=== PATIENT | female | born 1980 | race Caucasian/White ===

== ENCOUNTER 2016-10-04 09:52 | Emergency (ER) | payer OTHER ==
[2016-10-04] MEDS ORDERED: Aspirin Low Dose CHEW TAB* 81 MG PO ONE (10:15)
[2016-10-04 10:52] LABS: Hematocrit 40 % (35-47); Hemoglobin 13.3 g/dl (12.0-16.0); Mean Corpuscular HGB Conc 33 g/dl (31-36); Mean Corpuscular Hemoglobin 30 pg (27-31); Mean Corpuscular Volume 90 fL (80-97); Mean Platelet Volume 9 um3 (7.4-10.4); Red Blood Count 4.41 10^6/ul (4.0-5.4); Red Cell Distribution Width 13 % (10.5-15); White Blood Count 6.1 10^3/ul (3.5-10.8)
--- NOTE | 2016-10-04 11:06 | RAD ---
Indication: Chest pain. Single frontal view of the chest performed at 1043 hours was reviewed. No prior study is available for comparison. No mediastinal shift is noted. Heart is of normal size and configuration. Lung adair appear clear. IMPRESSION: NO ACTIVE CARDIOPULMONARY DISEASE IS NOTED.
[2016-10-04 11:07] LABS: Albumin 4.6 g/dL (3.2-5.2); Calcium 9.4 mg/dL (8.6-10.3); EGFR African American 114.5 (>60); Globulin 2.7 g/dL (2-4); Potassium 3.8 mmol/L (3.5-5.0); Total Bilirubin 0.8 mg/dL (0.2-1.0); Total Protein 7.3 g/dL (6.4-8.9)
[2016-10-04 11:10] LABS: Troponin I 0.01 ng/mL (<0.04)
--- NOTE | 2016-10-04 11:24 | RAD ---
Indication: Neck pain radiating to the right upper extremity. CT of the cervical spine was obtained in the axial plane. Sagittal and coronal reconstructed images were obtained. Inferior mastoid air cells are unremarkable. The C1 ring is intact. No fracture is identified. The vertebral bodies appear normal in height and alignment. No compression fracture is noted. There is no disc protrusion there is minimal central disc protrusion at C3-C4 flattening the thecal sac. No definite central or foraminal stenosis is noted. IMPRESSION: No fracture of the cervical spine is noted. There is suggestion of a minimal central disc protrusion at C3-C4.
[2016-10-04 12:08] VITALS: BP 102/66
[2016-10-04] MEDS ORDERED: Ketorolac INJ* 30 MG/ML 1 ML VIAL IV PUSH ONE (12:20)
[2016-10-04] MEDS ORDERED: Dexamethasone IV* 4 MG in NS 0.9% 50 ML* 50 ML IVPB SCH (13:00)
--- NOTE | 2016-10-20 20:48 | ED ---
Jared Gilmore Adam, scribed for Robert Urbina MD on 10/04/16 at 1018 . HPI Chest Pain - HPI Summary HPI Summary: Pt is a 35 year old female presenting with left arm pain and CP. She states that her left arm has been hurting intermittently for approximately 1 month. The pain is located along her inner forearm. She states that sometimes it sets on when she is at rest. At worst the pain is 8/10 in severity. It is currently 5 /10. She describes it as a sharp pain, often accompanied by numbness. She also c /o intermittent mid-sternal CP for 1 week, as well as back pain. Pt denies any PMHx and is not on any medications. She denies tobacco/alcohol use. FMHx of heart disease. - History of Current Complaint Chief Complaint: EDChestPainROMI Time Seen by Provider: 10/04/16 10:14 Hx Obtained From: Patient Onset/Duration: Started Weeks Ago - CP for the past week, arm pain for the past month, Atraumatic, Still Present Timing: Intermittent Initial Severity: Moderate Current Severity: Moderate Pain Intensity: 5 Pain Scale Used: 0-10 Numeric Chest Pain Location: Mid Sternal Chest Pain Radiates: Yes Chest Pain Radiates To:: Arm - Left Character: Sharp/Stabbing - In the left arm Aggravating Factor(s): Nothing Alleviating Factor(s): Nothing Associated Signs and Symptoms: Positive: Numbness - Left arm - Allergy/Home Medications Allergies/Adverse Reactions: Allergies Allergy/AdvReac Type Severity Reaction Status Date / Time No Known Allergies Allergy Verified 10/04/16 10:06 PMH/Surg Hx/FS Hx/Imm Hx Previously Healthy: Yes Infectious Disease History: Yes Infectious Disease History: Denies: Traveled Outside the [place] in Last 30 Days - Family History Known Family History: Positive: Cardiac Disease - Social History Occupation: Employed Full-time Lives: With Family - Domestic partner male Alcohol Use: None Hx Tobacco Use: No Smoking Status (MU): Never Smoked Tobacco Review of Systems Negative: Fever Positive: Chest Pain Positive: Myalgia - Left arm Positive: Numbness - Left arm All Other Systems Reviewed And Are Negative: Yes Physical Exam - Summary Physical Exam Summary: VITAL SIGNS: Reviewed. GENERAL: Patient is a well developed and nourished female who is lying comfortable in the stretcher. Patient is not in any acute respiratory distress. HEAD AND FACE: No signs of trauma. No ecchymosis, hematomas or skull depressions. No sinus tenderness. EYES: PERRLA, EOMI x 2, No injected conjunctiva, no nystagmus. EARS: Hearing grossly intact. Ear canals and tympanic membranes are within normal limits. MOUTH: Oropharynx within normal limits. NECK: Supple, trachea is midline, no adenopathy, no JVD, no carotid bruit, positive c-spine tenderness, neck with full ROM. CHEST: Symmetric, no tenderness at palpation LUNGS: Clear to auscultation bilaterally. No wheezing or crackles. CVS: Regular rate and rhythm, S1 and S2 present, no murmurs or gallops appreciated. ABDOMEN: Soft, non-tender. No signs of distention. No rebound no guarding, and no masses palpated. Bowel sounds are normal. EXTREMITIES: FROM in all major joints, no edema, no cyanosis or clubbing. NEURO: Alert and oriented x 3. No acute neurological deficits. Speech is normal and follows commands. SKIN: Dry and warm Triage Information Reviewed: Yes Vital Signs On Initial Exam: Initial Vitals Temp Pulse Resp BP Pulse Ox 99.6 F 96 16 97/61 100 10/04/16 10:03 10/04/16 10:03 10/04/16 10:03 10/04/16 10:03 10/04/16 10:03 Vital Signs Reviewed: Yes Diagnostics - Vital Signs Vital Signs Temp Pulse Resp BP Pulse Ox 10/04/16 10:03 99.6 F 96 16 97/61 100 - Laboratory Lab Results: Lab Results 10/04/16 10/04/16 10/04/16 Range/Units 10:20 10:20 10:20 WBC 6.1 (3.5-10.8) 10^3/ul RBC 4.41 (4.0-5.4) 10^6/ul Hgb 13.3 (12.0-16.0) g/dl Hct 40 (35-47) % MCV 90 (80-97) fL MCH 30 (27-31) pg MCHC 33 (31-36) g/dl RDW 13 (10.5-15) % Plt Count 189 (150-450) 10^3/ul MPV 9 (7.4-10.4) um3 Neut % (Auto) 60.1 (38-83) % Lymph % (Auto) 32.3 (25-47) % [place] % (Auto) 5.7 (1-9) % Eos % (Auto) 1.3 (0-6) % Baso % (Auto) 0.6 (0-2) % Absolute Neuts (auto) 3.6 (1.5-7.7) 10^3/ul Absolute Lymphs (auto) 2.0 (1.0-4.8) 10^3/ul Absolute Monos (auto) 0.3 (0-0.8) 10^3/ul Absolute Eos (auto) 0.1 (0-0.6) 10^3/ul Absolute Basos (auto) 0 (0-0.2) 10^3/ul Absolute Nucleated RBC 0 10^3/ul Nucleated RBC % 0 Sodium 137 (133-145) mmol/L Potassium 3.8 (3.5-5.0) mmol/L Chloride 103 (101-111) mmol/L Carbon Dioxide 29 (22-32) mmol/L Anion Gap 5 (2-11) mmol/L BUN 12 (6-24) mg/dL Creatinine 0.75 (0.51-0.95) mg/dL Est GFR ( Amer) 114.5 (>60) Est GFR (Non-Af Amer) 89.0 (>60) BUN/Creatinine Ratio 16.0 (8-20) Glucose 63 L (70-100) mg/dL Lactic Acid 1.1 (0.5-2.0) mmol/L Calcium 9.4 (8.6-10.3) mg/dL Total Bilirubin 0.80 (0.2-1.0) mg/dL AST 13 (13-39) U/L ALT 14 (7-52) U/L Alkaline Phosphatase 41 (34-104) U/L Troponin I 0.01 (<0.04) ng/mL Total Protein 7.3 (6.4-8.9) g/dL Albumin 4.6 (3.2-5.2) g/dL Globulin 2.7 (2-4) g/dL Albumin/Globulin Ratio 1.7 (1-3) Beta HCG, Quant Pending Result Diagrams: 10/04/16 10:20 10/04/16 10:20 Lab Statement: Any lab studies that have been ordered have been reviewed, and results considered in the medical decision making process. - Radiology CXR Radiology Interpretation Completed By: Radiologist - IMPRESSION: NO ACTIVE CARDIOPULMONARY DISEASE IS NOTED. - CT CERVICAL SPINE CT Interpretation Completed By: Radiologist - IMPRESSION: No fracture of the cervical spine is noted. There is suggestion of a minimal central disc protrusion at C3-C4. - EKG 10:15 Cardiac Rate: NL - 86 BPM EKG Rhythm: Sinus Rhythm EKG Interpretation: No ST elevations - Additional Comments Diagnostic Additional Comments: Troponin I - 0.01 Chest Pain Course/Dx - Course Course Of Treatment: Pt is a 35 year old female presenting with left arm pain and CP. She states that her left arm has been hurting intermittently for approximately 1 month. The pain is located along her inner forearm. She states that sometimes it sets on when she is at rest. At worst the pain is 8/10 in severity. It is currently 5/10. She describes it as a sharp pain, often accompanied by numbness. She also c/o intermittent mid-sternal CP for 1 week, as well as back pain. Pt denies any PMHx and is not on any medications. She denies tobacco/alcohol use. FMHx of heart disease. BW is found to be WNL except for glucose of 63. CXR shows no acute pathology. CT C spine shows minimal central disc protrusion at C3-C4. I believe the pain is secondary to the disc protrusion. Troponin is negative and EKG is WNL. Therefore I don't suspect acute coronary syndrome. Pt was given Decadron and Toradol. She is feeling better and will be discharged home. Pt is hemodynamically stable and A& Ox3. - Chest Pain Differential Diagnosis/HQI/PQRI: Chest Wall, Lower Respiratory Infection, Other : - Neck sprain, neck pain - Diagnoses Provider Diagnoses: Neck pain, Upper extremity paresthesia, Atypical chest pain Discharge - Discharge Plan Condition: Stable Disposition: HOME Prescriptions: Ibuprofen TAB* [Motrin TAB* 600 MG] 600 mg PO Q8H PRN #20 tab PRN Reason: Pain Methylprednisolone [Medrol Dosepak 4 MG*] 4 mg PO .SEE ANTONIO INSTRUCTION #1 antonio Patient Education Materials: Neck Pain (ED), Paresthesia (ED), Chest Pain (ED) Referrals: Rivera Vidal DO [Primary Care Provider] - Additional Instructions: Follow up with Dr. Vidal. The documentation as recorded by the Jared iglesias Adam accurately reflects the service I personally performed and the decisions made by , Robert Urbina MD.
== END 2016-10-04 12:45 | disposition home or self-care (01) ==
LOC: ED 09:52
DX: R07.89 Other chest pain (principal); M79.602 Pain in left arm; M54.2 Cervicalgia; R20.9 Unspecified disturbances of skin sensation
CPT/HCPCS: 36415; 71010; 72125; 80053; 83605; 84484; 84702; 85025; 93005; 96374; 99283

== ENCOUNTER 2017-08-31 18:42 | Emergency (ER) | payer OTHER ==
--- NOTE | 2017-08-31 20:56 | ED ---
Upper Extremity Pain - HPI Summary HPI Summary: 39-year-old female presents with right wrist pain today. She states that she fell on her right wrist 3 times with the last time being during rollerblading. She denies any numbness and tingling. She hasn't taken anything for pain. Pain is a 5 out of 10. She states pain is worse with movement. She denies any previous injury to the area. She is right-handed. She denies any other injury. she states this is a chance that she is . She works as a home health aide. - History of Current Complaint Chief Complaint: EDExtremityUpper Stated Complaint: POSSIBLE BROKEN RT ARM Time Seen by Provider: 08/31/17 19:26 - Allergies/Home Medications Allergies/Adverse Reactions: Allergies Allergy/AdvReac Type Severity Reaction Status Date / Time No Known Allergies Allergy Verified 10/04/16 10:06 PMH/Surg Hx/FS Hx/Imm Hx Endocrine/Hematology History: Denies: Hx Anticoagulant Therapy Cardiovascular History: Denies: Hx Hypertension Infectious Disease History: No Infectious Disease History: Denies: Traveled Outside the [place] in Last 30 Days - Family History Known Family History: Positive: Cardiac Disease - Social History Alcohol Use: None Substance Use Type: Reports: None Hx Tobacco Use: No Smoking Status (MU): Never Smoked Tobacco Review of Systems Negative: Fever Negative: Chest Pain Negative: Shortness Of Breath Positive: Myalgia - right wrist pain All Other Systems Reviewed And Are Negative: Yes Physical Exam Triage Information Reviewed: Yes Vital Signs On Initial Exam: Initial Vitals Temp Pulse Resp BP Pulse Ox 98.1 F 93 15 102/65 100 08/31/17 18:47 08/31/17 18:47 08/31/17 18:47 08/31/17 18:47 08/31/17 18:47 Vital Signs Reviewed: Yes Appearance: Positive: Well-Appearing Skin: Positive: Warm, Dry Head/Face: Positive: Normal Head/Face Inspection Eyes: Positive: Normal, Conjunctiva Clear Respiratory/Lung Sounds: Positive: Clear to Auscultation, Breath Sounds Present Musculoskeletal: Positive: Limited @ - right wrist due to pain, Other - tenderness over radius and ulnar near right wrist. good pulses, sensation grossly intact. Negative: Edema Right Neurological: Positive: Normal Psychiatric: Positive: Normal Procedures - Splinting Location: right wrist Hand-Made Type: orthoglass Splint: sugar-tong Pre-Proc Neuro Vasc Exam: normal Post-Proc Neuro Vasc Exam: normal Diagnostics - Vital Signs Vital Signs Temp Pulse Resp BP Pulse Ox 08/31/17 18:47 98.1 F 93 15 102/65 100 - Laboratory Lab Statement: Any lab studies that have been ordered have been reviewed, and results considered in the medical decision making process. - Radiology wrist Xray Interpretation: Positive (See Comments) - IMPRESSION: QUESTIONABLE NONDISPLACED FRACTURE THROUGH THE STYLOID PROCESS OF THE ULNA. RECOMMEND CORRELATION WITH SITE OF PAIN Radiology Interpretation Completed By: Radiologist Course/Dx - Course Course Of Treatment: 39-year-old female presents with right wrist pain today. She states that she fell on her right wrist 3 times with the last time being during rollerblading. She denies any numbness and tingling. She hasn't taken anything for pain. Pain is a 5 out of 10. She states pain is worse with movement. She denies any previous injury to the area. She is right-handed. She denies any other injury. she states this is a chance that she is . on exam neurovascularly intact. Has tenderness over the radial and ulnar aspect of the right wrist. No snuffbox tenderness. X-ray shows possible ulnar fracture. On exam tender over ulnar styloid process. Place patient in splint and follow-up with ortho. patient understand and agrees with plan. - Diagnoses Differential Diagnosis/HQI/PQRI: Positive: Fracture (Closed), Strain, Sprain Provider Diagnoses: Right wrist injury Discharge - Discharge Plan Condition: Good Disposition: HOME Prescriptions: oxyCODONE/Acetamin 5/325 MG* [Percocet 5/325 TAB*] 1 tab PO Q6H PRN #10 tab MDD 4 PRN Reason: Pain Patient Education Materials: Wrist Fracture in Adults (ED) Referrals: Rivera Vidal DO [Primary Care Provider] - Akil Randle MD [Medical Doctor] - Additional Instructions: Take Tylenol or ibuprofen every 6 hours as needed for pain, take narcotic for break through pain Apply ice, rest, elevate Follow up with ortho Return to ED if develop any new or worsening symptoms
--- NOTE | 2017-08-31 21:16 | RAD ---
HISTORY: Right wrist pain, trauma COMPARISONS: None VIEWS: 3, Frontal, lateral, and oblique views of the right wrist FINDINGS: BONE DENSITY: Normal. BONES: On a single projection, there is a faint linear lucency through the styloid process of the ulna. JOINTS: There is no arthropathy. ALIGNMENT: There is no dislocation. SOFT TISSUES: Unremarkable. OTHER FINDINGS: None. IMPRESSION: QUESTIONABLE NONDISPLACED FRACTURE THROUGH THE STYLOID PROCESS OF THE ULNA. RECOMMEND CORRELATION WITH SITE OF PAIN
[2017-08-31] MEDS ORDERED: oxyCODONE/Acetamin 5/325 MG* TAB PO ONE (21:34)
[2017-08-31] MEDS ORDERED: Ketorolac INJ* 60 MG/2 ML VIAL IM ONE (21:34)
[2017-08-31 21:55] VITALS: BP 104/64
== END 2017-08-31 21:54 | disposition home or self-care (01) ==
LOC: ED 18:42
DX: S69.91XA Unspecified injury of right wrist, hand and finger(s), initial encounter (principal); V00.111A Fall from in-line roller-skates, initial encounter; Y93.51 Activity, roller skating (inline) and skateboarding; Y92.9 Unspecified place or not applicable; Z32.02 Encounter for pregnancy test, result negative
CPT/HCPCS: 36415; 84702; 96372; 99282; A9270-GY; J1885

== ENCOUNTER 2018-07-08 08:14 | Inpatient (IN) | payer OTHER ==
--- NOTE | 2018-07-08 08:52 | HP ---
General Information - Reason for Visit Pt reports ctx starting at 0200, increasing in frequency and intensity. Denies leaking of fluid. Reports active FM. - General Information Maternal Age: 37 Grav: 6 Para: 5 SAB: 0 IEA: 0 Estimated Due Date: 07/14/18 Determined By: Early Ultrasound Maternal Blood Type and Rh: A Positive - Results this Serology/RPR Result: Non-Reactive Rubella Result: Immune HBsAg Result: Negative HIV Result: Negative GBS Culture Result: Negative Past Medical History Delivery History: Hx Uncomplicated Vaginal Delivery - Grand multipara Pertinent Past Medical History: See Records - asthma, eczema Pertinent Past Surgical History: None Pertinent Family History: See Records - asthma - Antepartal Records Antepartal Records: Reviewed, Complicated by: - grand multiparity, AMA Review of Systems Constitutional: Uncomfortable CV Complaint: No Respiratory: Shortness of Breath: No Gastrointestinal: No Nausea/Vomiting, Normal Bowel Movement Genitourinary: No Dysuria, No Bleeding, No Leaking Fluid Musculoskeletal: No Epigastric Pain, Contractions Neurological: No Headache, No Visual Changes Movement: Normal Exam Allergies/Adverse Reactions: Allergies No Known Allergies Allergy (Verified 10/04/16 10:06) T-98.5, P-95, R-18, BP-112/65, O2-98 - Measurements Height: 5 ft 4 in Weight: 61.235 kg Body Mass Index (BMI): 23.1 Pre- Weight: 51.256 kg - Exam Breast: Breast Exam Deferred CVA: No CVA Tenderness Extremities: No Edema Heart: Normal Rhythm/Heart Sounds HEENT: No Significant Findings Lungs: Clear Bilaterally - occasional cough, no wheezing Rectal: Rectal Exam Deferred Reflexes: DTR 2+ Thyroid: No Thyromegaly - Abdominal Exam Abdomen Exam: Non-Tender, Fundal Height Consistent with Dates - Ultrasound/Biophysical Profile Ultrasound Status: Not Done Targeted Exam Findings See L&D Outpatient Visit Provider Note for Findings: N/A Estimated Weight: 7# Cervical Exam: 5cm Effacement: 80% Station: -1 Presenting Part: Vertex Membrane Status: Intact Bleeding/Discharge: Bloody Show EFM Findings - External Monitor Findings Baseline Heart Rate: 135 External Monitor Findings: Accelerations Present, No Pattern of Variable or Late Decelerations, Variability Moderate, Baseline Stable Contractions: Regular, Strong, 45-90 Seconds Contraction Frequency: 4-5 minutes Assessment/Plan - Assessment 37 year old at 39 1/7 weeks gestation in active labor, no evidence of acidemia, membranes intact, GBS negative. - Obstetrical Risk Factors Risk Factors Comment: Grand multiparity - Plan Plan: Admit - Anticipate Vaginal Delivery Plan Comment: Discussed plan of care with pt. She is interested in an epidural but does not feel ready for it yet. Will initiate IV access, CBC, Type and Screen and give IVF bolus. Will notify anesthesiologist when pt feels ready for epidural. Room ready for delivery in case of precipitous . Plan IV Pitocin after of baby. - Date/Time of Admission Date of Admission: 07/08/18 Time of Admission: 08:45
[2018-07-08 09:08] LABS: ABS Basophils 0 10^3/ul (0-0.2); ABS Eosinophils 0.1 10^3/ul (0-0.6); ABS Lymphocytes 1.7 10^3/ul (1.0-4.8); ABS Monocytes 0.7 10^3/ul (0-0.8); ABS Neutrophils 9.8 10^3/ul (1.5-7.7); ABS Nucleated RBC 0 10^3/ul; Eosinophil % 0.7 %; Hematocrit 30 % (35-47); Lymphocyte % 13.7 %; Mean Corpuscular HGB Conc 34 g/dl (31-36); Mean Corpuscular Hemoglobin 29 pg (27-31); Mean Corpuscular Volume 85 fL (80-97); Mean Platelet Volume 8.2 fL (7.4-10.4); Nucleated Red Blood Cells % 0; Platelet Count 166 10^3/ul (150-450); Red Blood Count 3.51 10^6/ul (4.00-5.40); Red Cell Distribution Width 13 % (10.5-15); White Blood Count 12.4 10^3/ul (3.5-10.8)
--- NOTE | 2018-07-08 10:45 | PN ---
Progress Note - Progress Note Date of Service: 07/08/18 SOAP: Subjective: Pt reports ctx are "about the same." Coping well, friend at bedside, supportive. Feels active FM. Objective: FHR baseline 140, moderate variability, + accels Ctx Q 5 minutes, moderate Vital signs stable Cervical exam deferred Assessment: 37 year old in active labor, no evidence of acidemia Plan: Will continue expectant management for now. Will consider AROM with next cervical exam. Will call anesthesia for epidural when pt feels ready.
[2018-07-08] MEDS ORDERED: OBEPIDURAL* 250 ML EPIDURAL ONE (12:46)
--- NOTE | 2018-07-08 12:54 | PN ---
Progress Note - Progress Note Date of Service: 07/08/18 SOAP: Subjective: Pt more uncomfortable with ctx. Ready for epidural. Feels baby moving. Denies urge to push. Objective: Cervical exam: 6cm/ 80%/ 0 station/ vtx FHR baseline 125/ + accels/ moderate variability/ no decels Ctx: Q 4-5 minutes, lasting 80-90 seconds, strong Assessment: 37 year old at 39 1/7 weeks gestation in active labor, ready for epidural Plan: Dr. Art notified that pt would like epidural, on her way. Once pt comfortable will offer AROM. Continuous EFM once epidural placed. Anticipate .
[2018-07-08] MEDS ORDERED: Famotidine TAB* 20 MG PO PRN (13:59)
[2018-07-08] MEDS ORDERED: Sodium Citrate/Citric Acid* 15 ML UDC PO PRN (13:59)
[2018-07-08] MEDS ORDERED: EPHEDrine (Pressors)* 50 MG/ML VIAL IV PUSH PRN ×2 (13:59)
[2018-07-08] MEDS ORDERED: Phenylephrine IV* 40 MCG/ML 10 ML SYRINGE IV PUSH PRN ×2 (13:59)
[2018-07-08] MEDS ORDERED: OBEPIDURAL* 250 ML EPIDURAL SCH (14:00)
[2018-07-08] MEDS ORDERED: Oxytocin in LR* 20 UNITS/1,000 ML BAG IVPB ONE (14:35)
--- NOTE | 2018-07-08 14:46 | PN ---
Progress Note - Progress Note Date of Service: 07/08/18 SOAP: Subjective: Pt comfortable with epidural. Objective: FHR 135 baseline, + accels, moderate variability, single isolated variable decel UCs 2-5 minutes, strong, 90 seconds Cervical exam 8cm/ 100%/ 0 station/ vtx, bulging bag prior to AROM AROM to large amount clear fluid with flecks of brown blood, no red blood noted Assessment: 37 year old in active labor, epidural in place, no evidence of acidemia, membranes ruptured to clear fluid Plan: AROM performed with pt consent. Continuous EFM Anticipate Oxytocin, cytotec, methergine at bedside. Discussed active management of 3rd stage with pt, she is in agreement with plan to initiate oxytocin after of baby.
[2018-07-08] MEDS ORDERED: Acetaminophen TAB* 325 MG PO PRN (17:19)
[2018-07-08] MEDS ORDERED: Glycerin ADULT SUPP PR PRN (17:19)
[2018-07-08] MEDS ORDERED: Witch Hazel PAD* JAR TOPICAL PRN (17:19)
[2018-07-08] MEDS ORDERED: Dibucaine 1% 28.35 GM TUBE PR PRN (17:19)
[2018-07-08] MEDS ORDERED: Oxytocin in LR* 20 UNITS/1,000 ML BAG IVPB SCH (18:00)
--- NOTE | 2018-07-08 19:35 | PROCNOTE ---
[facility] OB: Delivery Note - Delivery A Date of : 07/08/18 Time of : 17:00 [place] Sex: Female Weight at : 3.883 kg Score 1 Minute: 9 Score 5 Minutes: 9 Gestational Age in Weeks and Days at Delivery: 39 Weeks and 1 Days Delivery Method: Spontaneous Vaginal Labor: Spontaneous Did Patient attempt ?: N/A, No Previous Amniotic Fluid: Clear Estimated Blood Loss: 300 Anesthesia/Analgesia: CEI for Labor Delivered By: Erin Gallegos - Nursery Level of Nursery: Regular/Bedside - Perineum Perineal Injury: Abrasion Only - Not Repaired Perineal Repair: None - Events Delivery Events of Note: Pitocin Only After Delivery - Additional Delivery Notes Additional Delivery Notes: Pt admitted to labor and delivery in active labor at 5cm dilation. At that time contractions were still somewhat irregular. Eventually pt progressed to 6cm, was more uncomfortable, and requested and received an epidural with good relief. Pt continued to progress gradually until she experienced increased pressure and an urge to push and was found to be fully dilated. Pt pushed with good effort and after 3 minutes of pushing brought the baby to and birthed the head, OA to SHIREEN. Shoulders followed without difficulty and passed to maternal abdomen. Small gush of blood noted soon after and cord clamped x2 and cut at 3 minutes after . Placenta soon followed, [place] side with trailing membranes, appears intact. Perineum examined and found to be edematous but intact other than a small perineal abrasion, not repaired. IV Pitocin started immediately after of the placenta, but fundus remained very firm and bleeding was minimal. Infant breastfed soon after . Mother and stable at this time. Anticipate normal course.
[2018-07-08] MEDS: Ibuprofen TAB* 600 MG PO PRN (22:27)
[2018-07-08] MEDS: Docusate CAP* 100 MG PO SCH (22:27)
[2018-07-09] MEDS: Ibuprofen TAB* 600 MG PO PRN ×3 (08:54→22:25)
[2018-07-09] MEDS: Docusate CAP* 100 MG PO SCH ×3 (08:56→21:18)
[2018-07-09 14:52] LABS: ABS Basophils 0.1 10^3/ul (0-0.2); ABS Eosinophils 0.1 10^3/ul (0-0.6); ABS Lymphocytes 1.9 10^3/ul (1.0-4.8); ABS Monocytes 0.7 10^3/ul (0-0.8); ABS Neutrophils 9.4 10^3/ul (1.5-7.7); ABS Nucleated RBC 0 10^3/ul; Eosinophil % 0.7 %; Hematocrit 29 % (35-47); Hemoglobin 9.5 g/dl (12.0-16.0); Lymphocyte % 15.4 %; Mean Corpuscular HGB Conc 33 g/dl (31-36); Mean Corpuscular Hemoglobin 29 pg (27-31); Mean Corpuscular Volume 86 fL (80-97); Mean Platelet Volume 8.9 fL (7.4-10.4); Nucleated Red Blood Cells % 0.1; Platelet Count 192 10^3/ul (150-450); Red Blood Count 3.32 10^6/ul (4.00-5.40); Red Cell Distribution Width 14 % (10.5-15); White Blood Count 12.2 10^3/ul (3.5-10.8)
[2018-07-09] MEDS: Ferrous Gluconate TAB* 324 MG TAB PO SCH ×2 (16:23→21:23)
[2018-07-09 19:45] VITALS: BP 99/60
[2018-07-10] MEDS: Ibuprofen TAB* 600 MG PO PRN (10:17)
[2018-07-10] MEDS: Docusate CAP* 100 MG PO SCH ×2 (10:17→13:41)
[2018-07-10] MEDS: Ferrous Gluconate TAB* 324 MG TAB PO SCH (10:17)
== END 2018-07-10 18:13 | disposition home or self-care (01) | DRG 560 ==
LOC: MCHOBOUT 08:14 → MCHOB 08:40
PROVIDERS: ADMIT Midwife; ATTEND Midwife
PROC: 10E0XZZ Delivery of Products of Conception, External Approach (ICD-10-PCS; principal; 2018-07-08)
PROC: 10907ZC Drainage of Amniotic Fluid, Therapeutic from Products of Conception, Via Natural or Artificial Opening (ICD-10-PCS; 2018-07-08)
PROC: 4A1HXCZ Monitoring of Products of Conception, Cardiac Rate, External Approach (ICD-10-PCS; 2018-07-08)
DX: O76 Abnormality in fetal heart rate and rhythm complicating labor and delivery (principal); Z37.0 Single live birth; O99.62 Diseases of the digestive system complicating childbirth; K21.9 Gastro-esophageal reflux disease without esophagitis; Z3A.39 39 weeks gestation of pregnancy; O90.81 Anemia of the puerperium; O71.89 Other specified obstetric trauma; Z64.1 Problems related to multiparity
CPT/HCPCS: 36415; 85025; 86850; 86900; 86901; A9270-GY